=== PATIENT | female | born 1990 | race Two or more races ===

== ENCOUNTER 2018-09-09 22:09 | Emergency (ER) | payer OTHER ==
[~2018-09-09] VITALS: Ht 157.5 cm; Wt 85.7 kg
[~2018-09-09 22:09] MED LIST: NADALOL; birth control; prednisone taper
[2018-09-09 22:36] VITALS: BP 175/98
[2018-09-09 23:01] LABS: BILIRUBIN,URINE NEGATIVE (NEG); CLARITY,URINE CLEAR; COLOR,URINE YELLOW; NITRITE,URINE NEGATIVE (NEG); PROTEIN,URINE NEGATIVE (NEG-TRACE); UROBILINOGEN,URINE 0.2 mg/dL (0.2 mg/dL)
[2018-09-09 23:08] LABS: BACTERIA,URINE FEW /HPF (0-FEW); RBC,URINE 0 /HPF (0-2); SQUAMOUS EPITHELIAL CELL,UR MOD /LPF; WBC,URINE OCC /HPF (0-4)
[2018-09-10] MEDS ORDERED: KETOROLAC 30 MG/ML VIAL. IM ONE
[2018-09-10] MEDS ORDERED: ORPH100T PO (00:25)
[2018-09-10] MEDS ORDERED: IBUP200T44 PO (00:25)
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
== END 2018-09-10 00:42 | disposition home or self-care (01) ==
LOC: ER 22:09
DX: S16.1XXA Strain of muscle, fascia and tendon at neck level, initial encounter (principal); R07.89 Other chest pain; I10 Essential (primary) hypertension; G43.909 Migraine, unspecified, not intractable, without status migrainosus; Z87.891 Personal history of nicotine dependence; Z88.1 Allergy status to other antibiotic agents; Z88.2 Allergy status to sulfonamides; Z88.8 Allergy status to other drugs, medicaments and biological substances; V43.62XA Car passenger injured in collision with other type car in traffic accident, initial encounter; Y93.89 Activity, other specified; Y92.410 Unspecified street and highway as the place of occurrence of the external cause; Y99.8 Other external cause status
CPT/HCPCS: 71101; 81001; 81025; 96372; 99284; J1885

== ENCOUNTER → 2021-11-17 | Outpatient (CLI) | payer OTHER ==
[~2021-11-17] MED LIST changes: +IBUP200T44 PO; +ORPH100T PO
--- NOTE | 2021-11-17 17:05 | KCIC ---
US PELVIS COMPLETE History: Dysfunctional uterine bleeding Comparison: None. Technique: Sonographic examination of the pelvis was performed with transabdominal technique. Findings: Uterus- Uterine parenchyma: Homogeneous without fibroids. Uterine measurements: 11.0 x 4.1 x 6.2 cm Cervix: Unremarkable. Endometrium- Endometrial Stripe: No abnormal fluid collections in the endometrial cavity, no obvious mass, and no abnormal blood flow within the endometrium by Doppler. Thickness: 2 mm. Adnexa- Right Ovary: Identified and appears normal. Size: 3.6 x 2.4 x 1.8 cm Doppler: Normal. Left Ovary: Identified and appears normal. Size: 4.0 x 2.4 x 3.5 cm Doppler: Normal. Other: No abnormal adnexal masses. No abnormal free fluid in the pelvis. Impression: 1. Unremarkable pelvic ultrasound. Electronically signed by: Lior Santiago MD (11/17/2021 5:03 PM) [id number]
== END ==
LOC: KCIC US 15:18
PROVIDERS: ATTEND Nurse Practitioner Family
DX: N93.8 Other specified abnormal uterine and vaginal bleeding (principal)
CPT/HCPCS: 76856